=== PATIENT | female | born 1985 | race Caucasian/White ===

== ENCOUNTER 2016-11-28 10:03 | Emergency (ER) | payer OTHER ==
[~2016-11-28] VITALS: Ht 160 cm; Wt 50.8 kg
[2016-11-28 11:15] LABS: *BILIRUBIN,URIN NEGATIVE (NEGATIVE); *BLOOD, URINE NEGATIVE (NEGATIVE); *CLARITY,URINE CLEAR (CLEAR); *COLOR,URINE YELLOW (YELLOW); *KETONES,URINE NEGATIVE (NEGATIVE); *PROTEIN,URINE NEGATIVE (NEGATIVE); *UROBILINOGEN,URINE 0.2 E.U./dl (NORMAL); LEUKOCYTE ESTERASE ,URINE NEGATIVE (NEGATIVE); NITRITE, URINE NEGATIVE (NEGATIVE); UGLUCOSE NEGATIVE (NEGATIVE)
[2016-11-28 11:20] LABS: *URINE HCG, QUAL NEGATIVE (NEGATIVE)
[2016-11-28 11:28] LABS: BACTERIA,URINE FEW /HPF (NONE SEEN); RBC,URINE 0-3 /HPF (0-3); SQUAMOUS EPITHELIAL CELL,UR FEW /HPF (NONE SEEN); WBC,URINE 0-3 /HPF (0-3)
--- NOTE | 2016-11-28 12:10 | NUR ---
Patient discharged to home in stable conditon. Written and verbal after care instructions given. Patient verbalizes understanding of instructions.pt walks in steady gait. no sign of distress.
== END 2016-11-28 12:33 | disposition home or self-care (01) ==
LOC: ER 10:03
DX: N39.0 Urinary tract infection, site not specified (principal)
CPT/HCPCS: 84703; A4663

== ENCOUNTER 2017-02-17 18:36 | Emergency (ER) | payer OTHER ==
[~2017-02-17] VITALS: Ht 160 cm; Wt 49.9 kg
--- NOTE | 2017-02-17 19:35 | NUR ---
Patient discharged to home in stable conditon. Written and verbal after care instructions given. Patient verbalizes understanding of instructions.
== END 2017-02-17 19:36 | disposition home or self-care (01) ==
LOC: ER 18:40
DX: A60.00 Herpesviral infection of urogenital system, unspecified (principal); R05 Cough; R19.7 Diarrhea, unspecified; F17.200 Nicotine dependence, unspecified, uncomplicated
CPT/HCPCS: A4663

== ENCOUNTER 2017-03-21 13:45 | Emergency (ER) | payer OTHER ==
[~2017-03-21] VITALS: Ht 160 cm; Wt 49.4 kg
--- NOTE | 2017-03-21 14:07 | NUR ---
PATIENT WAS SEEN AND EXAMINED BY DR ASHER IN ROOM 03A. PATIENT A & O X4.
[2017-03-21 14:24] VITALS: BP 112/61
--- NOTE | 2017-03-21 14:26 | NUR ---
Patient discharged to home in stable conditon. Written and verbal after care instructions given. Patient verbalizes understanding of instructions.
== END 2017-03-21 14:26 | disposition home or self-care (01) ==
LOC: ER 13:46
DX: B80 Enterobiasis (principal); F17.200 Nicotine dependence, unspecified, uncomplicated
CPT/HCPCS: 99283; A4663